=== PATIENT | female | born 1970 | race Caucasian/White ===

== ENCOUNTER 2018-11-30 09:20 | Day surgery (SDC) | payer BC, OTHER ==
[2018-11-26 13:42] VITALS: BMI 38.7
[~2018-11-30 09:20] MED LIST: LACTATED RINGERS 1,000 ML IV SCH; LIDOCAINE 1% 20 ML VIAL (10MG/ML) FOR IV START INTRADERMA PRN
[2018-11-30 09:46] VITALS: RESP 18; TEMP 98.4
[2018-11-30] MEDS ORDERED: MIDAZOLAM 2 MG/2 ML VIAL ONE (10:28)
[2018-11-30] MEDS ORDERED: fentaNYL (PF) 50 MCG/ML 2 ML AMP ONE (10:28)
[2018-11-30] MEDS ORDERED: LIDOCAINE 1% INJ 10MG/ML (20 ML MDV) ONE (10:28)
[2018-11-30] MEDS ORDERED: PROPOFOL 10 MG/ML 20 ML VIAL IV ONE (10:28)
--- NOTE | 2018-11-30 10:33 | P.GSHP ---
History of Present Illness H&P Date: 11/30/18 Chief Complaint: GERD Patient is complaints of chronic reflux. Initially omeprazole once daily was helpful. Lately she is having reflux despite her antiacids. Usually at nighttime. No dysphagia. No melanotic stools. Past Medical History Past Medical History: GERD/Reflux, Hyperlipidemia Additional Past Medical History / Comment(s): Slightly high cholesterol History of Any Multi-Drug Resistant Organisms: None Reported Additional Past Surgical History / Comment(s): oral surgery Past Anesthesia/Blood Transfusion Reactions: Motion Sickness Smoking Status: Current every day smoker - Past Family History Mother Family Medical History: Cancer Medications and Allergies Home Medications Medication Instructions Recorded Confirmed Type Omeprazole 20 mg PO 1700 11/26/18 11/30/18 History Allergies Allergy/AdvReac Type Severity Reaction Status Date / Time No Known Allergies Allergy Verified 11/26/18 13:35 Surgical - Exam Vital Signs Temp Pulse Resp BP Pulse Ox 98.4 F 77 18 148/83 97 11/30/18 09:42 11/30/18 09:42 11/30/18 09:42 11/30/18 09:42 11/30/18 09:42 Physical exam: General: Well-developed, well-nourished HEENT: Normocephalic, sclerae nonicteric Abdomen: Nontender, nondistended Extremities: No edema Neuro: Alert and oriented Assessment and Plan (1) GERD (gastroesophageal reflux disease) Narrative/Plan: Will proceed with upper endoscopy at this time Current Visit: Yes Status: Acute Code(s): K21.9 - GASTRO-ESOPHAGEAL REFLUX DISEASE WITHOUT ESOPHAGITIS SNOMED Code(s): 830236943
--- NOTE | 2018-11-30 10:44 | P.PCN ---
Date of Procedure: 11/30/18 Procedure(s) Performed: Preoperative Dx: GERD Postoperative Dx: Mild gastritis, multiple gastric polyps, mild distal esophagitis Procedure: EGD with Bx Anesthesia: Sedation Endoscopist: Dr. Smith Specimens: Antrum, duodenum, gastric polyp, distal esophagus Endoscopic Procedure: The patient was on the endoscopy table in the left decubitus position. The Olympus gastroscope was inserted into the oropharynx and passed under direct visualization to the region of the third portion of the duodenum. From that point the scope was slowly withdrawn inspecting all surfaces carefully. There were no neoplastic inflammatory or polypoid lesions throughout the duodenum. A biopsy of the duodenum took place. The pylorus was widely patent. The stomach was carefully inspected. There was mild gastritis present. Multiple gastric polyps were seen. None measuring greater than 1 cm. The largest polyp was biopsied using the cold biopsy forceps. A biopsy of the antrum took place to rule out H. pylori. Retroflexion revealed a normal hiatus. The esophagus was then carefully examined. There was a single linear erosion present at the GE junction. This was only about 5 mm in length. This was biopsied. The remainder the esophagus appear normal. The patient was then taken to the recovery room in stable condition per anesthesia guidelines. Recommendations: Await biopsy results. Increase antiacid therapy.
[2018-11-30 11:07] VITALS: BP 101/69; PULSE 67
== END 2018-11-30 11:40 | disposition home or self-care (01) ==
LOC: ORWHC2ENDO 09:20
PROVIDERS: ATTEND Surgery
DX: K29.00 Acute gastritis without bleeding (principal); K21.0 Gastro-esophageal reflux disease with esophagitis; K31.7 Polyp of stomach and duodenum; F17.210 Nicotine dependence, cigarettes, uncomplicated; E78.5 Hyperlipidemia, unspecified; Z79.899 Other long term (current) drug therapy
CPT/HCPCS: 88305; 43239; J2250; J2001; J3010; J2704

== ENCOUNTER → 2023-08-06 | Outpatient (CLI) | payer BC ==
[2023-08-06 08:59] VITALS: BP 134/85; PULSE 58; RESP 16; TEMP 98.2
--- NOTE | 2023-08-06 09:40 | P.HPOB ---
History of Present Illness H&P Date: 08/06/23 Chief Complaint: The patient is here for routine gynecologic exam This is a 52-year-old -0-1-1 with an LMP of July 2022. The patient is here to establish with this office. Is been about 3 years since her last pelvic exam. She has been taking Viozah for hot flashes for about 1 month and this has been helpful. She states she has been having moderate hot flashes and night sweats which were improved with this medication. She got this medication through her PCP. She believes she probably will not be taking it for very long because of the cost. She is otherwise without gynecologic complaints. Review of Systems She states she has intentionally lost 50 pounds during the past few years. She denies respiratory, cardiac, or GI problems. Past Medical History Past Medical History: GERD/Reflux, Hyperlipidemia Additional Past Medical History / Comment(s): PAST FRUIT [employer]OR HISTORY: She has no history of STDs. History of Any Multi-Drug Resistant Organisms: None Reported Additional Past Surgical History / Comment(s): oral surgery. Upper endoscopy. Past Anesthesia/Blood Transfusion Reactions: Motion Sickness Past Psychological History: No Psychological Hx Reported Smoking Status: Current every day smoker (Half a pack of cigarettes per day.) Past Alcohol Use History: Rare (2 drinks per year.) Additional Past Alcohol Use History / Comment(s): smokes > 1/2 ppd, has been smoking for 20 yrs Past Drug Use History: None Reported Additional History: She has been since 1998. 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 - Past Family History Mother Family Medical History: Hypertension Father Family Medical History: Unable to Obtain Medications and Allergies Home Medications Medication Instructions Recorded Confirmed Type Omeprazole 20 mg PO 1700 11/26/18 08/06/23 History Fezolinetant [Veozah] 45 mg PO DIRECTED 08/06/23 08/06/23 History Multivitamin [Multivitamins Adult 1 tab PO DAILY 08/06/23 08/06/23 History Gummies] Allergies Allergy/AdvReac Type Severity Reaction Status Date / Time No Known Allergies Allergy Verified 08/06/23 08:47 Exam Vital Signs Temp Pulse Resp BP Pulse Ox 08/06/23 08:49 98.2 F 58 L 16 134/85 97 Intake and Output 08/05/23 08/06/23 08/06/23 22:59 06:59 14:59 Other: Weight 87.997 kg Height 5 feet 6 inches, weight 194 pounds, BMI 31.3. This is a well-developed well-nourished white female who is alert and oriented times 3 in no acute distress. HEENT: Within normal limits. NECK: Supple without mass or thyromegaly. CHEST AND LUNGS: Clear to auscultation. HEART: Regular rate and rhythm. BREASTS: Are without mass or discharge. AXILLARY EXAM: Negative for adenopathy. BACK: Negative for CVA tenderness. ABDOMEN: Soft, nontender, without palpable masses. PELVIC EXAM: Normal external genitalia with minimal atrophy. Cervix and vagina appear normal. There is no unusual discharge. There is no evidence of prolapse. The uterus is midposition, nongravid size and nontender. There are no palpable adnexal masses or tenderness. RECTAL EXAM: Rectovaginal exam is negative for mass or tenderness and is negative for occult blood. EXTREMITIES: Nontender. IMPRESSION: 1. 52-year-old menopausal female with normal gynecologic exam. 2. Using the Veozah for moderate vasomotor symptoms associated with the menopausal change. PLAN: 1. Pap smear cotest was performed. 2. Self breast awareness was discussed with the patient. We have also discussed symptoms associated with inflammatory breast cancer. 3. Screening mammogram is scheduled for 08/07/23 and the order slip was given to the patient for this. 4. Osteoporosis prevention was discussed. I have stressed the importance of adequate calcium, vitamin D and regular exercise. Recommended amounts of calcium and vitamin D were also discussed. She had a normal bone density test at age 51 and was normal per the patient. 5. She is scheduled for her first screening colonoscopy in October of this year. 6. We have discussed vasomotor symptoms associated with menopause. We have discussed various options including HRT, SSRI medications, clonidine, and Veozah . She intends to discontinue the Veozah because of the cost. I have recommended that if she does continue the Veozah that she have liver function testing at 3-month intervals for the upcoming year. She states she will do this through her PCP if she continues it. We have also discussed nonmedication suggestions for her vasomotor symptoms. She will call if she desires other treatment. 7. She was advised to return in one year for her annual well woman exam and as needed.
== END ==
LOC: WWCWWP 08:30
PROVIDERS: ATTEND Obstetrics & Gynecology
DX: Z01.419 Encounter for gynecological examination (general) (routine) without abnormal findings (principal); F17.210 Nicotine dependence, cigarettes, uncomplicated; R61 Generalized hyperhidrosis; N95.8 Other specified menopausal and perimenopausal disorders; Z78.0 Asymptomatic menopausal state

== ENCOUNTER → 2023-08-07 | Outpatient (CLI) | payer BC ==
--- NOTE | 2023-08-11 19:22 | MM ---
Reason for Exam: Screening (asymptomatic). Baseline mammogram. Patient History: Menarche at age 13. First Full-Term at age 31. Late child-bearing (after 31). Postmenopausal. Risk Values: Bee 5 year model risk: 1.4%. NCI Lifetime model risk: 12.0%. Prior Study Comparison: Patient's first Mammogram. No prior studies available for comparison. Tissue Density: There are scattered areas of fibroglandular density. Findings: Analyzed By CAD. Bilateral areas of circumscribed or mostly circumscribed nodularity in an overall benign pattern. Further evaluation as no priors are available for comparison. No suspicious calcification or other discrete abnormality is seen. Overall Assessment: Incomplete: need additional imaging evaluation, BI-RAD 0 Management: Diagnostic Breast Ultrasound of both breasts. . [facility] will attempt to contact patient to return for supplemental views and ultrasound if indicated. Electronically signed and approved by: Cuco Walker M.D. Radiologist
== END | disposition home or self-care (01) ==
LOC: RADMAMWWP 13:48
PROVIDERS: ATTEND Family Medicine
DX: Z12.31 Encounter for screening mammogram for malignant neoplasm of breast (principal); Z78.0 Asymptomatic menopausal state
CPT/HCPCS: 77067

== ENCOUNTER → 2023-08-21 | Outpatient (CLI) | payer BC ==
--- NOTE | 2023-08-21 15:20 | USB ---
Reason for Exam: Additional evaluation requested from abnormal screening. Patient History: Menarche at age 13. First Full-Term at age 31. Late child-bearing (after 31). Postmenopausal. Risk Values: Bee 5 year model risk: 1.4%. NCI Lifetime model risk: 12.0%. Technique: Method: Whole Breast Handheld. Prior Study Comparison: 08/07/2023 Bilateral MG screening mammo w CAD, [facility]. Findings: The whole breast of both breasts, the axilla of both breasts and the retroareolar of both breasts were scanned. A complete US of all four quadrants of the bilateral breast, axilla, and retro-areolar region were reviewed. On the right, couple of benign cysts are present at the 10:00 position measuring 6 mm and 5 mm. No other solid or cystic lesion or lymphadenopathy. On the left, a tiny 4 mm benign cyst is present at the 9:00 position, 4 cm from the nipple. No suspicious solid lesion or axillary lymphadenopathy. Overall Assessment: Probably benign, BI-RAD 3 Management: Diagnostic Mammogram of both breasts in 6 months. A clinical breast exam by your physician is recommended on an annual basis and results should be correlated with mammographic findings. This exam should not preclude additional follow-up of suspicious palpable abnormalities. Results were given to the patient verbally at the time of exam. Electronically signed and approved by: Cuco Walker M.D. Radiologist
== END | disposition home or self-care (01) ==
LOC: RADUSWWP 14:18
PROVIDERS: ATTEND Family Medicine
DX: R92.8 Other abnormal and inconclusive findings on diagnostic imaging of breast (principal); Z78.0 Asymptomatic menopausal state